=== PATIENT | male | born 1980 | race Caucasian/White ===

== ENCOUNTER 2020-03-06 21:50 | Emergency (ER) | payer OTHER ==
[~2020-03-06] VITALS: Ht 177.8 cm; Wt 130.0 kg
[2020-03-06] MEDS ORDERED: TETanus/Pertussis (Acell)/Diphther VAC/PF (Tdap-Adult) 0.5ml syringe IMVAC ONE (23:20)
[2020-03-06] MEDS ORDERED: HYDROcodone/acetaminophen 5mg/325mg tablet PO ONE (23:20)
[2020-03-06 23:40] VITALS: BP 138/83
== END 2020-03-06 23:47 | disposition home or self-care (01) ==
LOC: ER 21:51
DX: S60.551A Superficial foreign body of right hand, initial encounter (principal); W45.8XXA Other foreign body or object entering through skin, initial encounter; Y93.89 Activity, other specified; Y92.89 Other specified places as the place of occurrence of the external cause; Y99.8 Other external cause status
CPT/HCPCS: 10120; 90471; 90715; 99284; 99285